=== PATIENT | female | born 1985 ===

== ENCOUNTER 2021-12-01 16:56 | Emergency (ER) | payer SELFPAY ==
[2021-12-01] MEDS ORDERED: Sodium Chloride 0.9% 1,000 ML IV ONE (17:03)
[2021-12-01] MEDS ORDERED: Sodium Chloride 0.9% 2.5 ML Syringe FLUSH PRN (17:03)
[2021-12-01] MEDS ORDERED: Sodium Chloride 0.9% 10 ML Syringe FLUSH PRN (17:03)
[2021-12-01 17:51] LABS: BLOOD UREA NITROGEN,BUN 13 mg/dL (7.0-18.0); CARBON DIOXIDE,CO2 18.5 mmol/L (21.0-32.0); CHLORIDE,CL 103 mmol/L (98-107); GLUCOSE RANDOM 102 mg/dL (74-106); POTASSIUM,K 3.4 mmol/L (3.5-5.1); SODIUM,NA 138 mmol/L (136-145)
[2021-12-01] MEDS ORDERED: Amoxicillin/Clavulanate K 875-125 MG Tab PO ONE (17:58)
[2021-12-01] MEDS ORDERED: Diphtheria,Pertussis(Acell),Tetanus Vaccine 0.5 ML Syringe IM ONE (17:58)
== END 2021-12-01 19:46 ==
LOC: MW.ED 16:56
DX: F10.129 Alcohol abuse with intoxication, unspecified (principal); Z23 Encounter for immunization; Y90.6 Blood alcohol level of 120-199 mg/100 ml
CPT/HCPCS: 36415; 70450; 80053; 80307; 82375; 83735; 84703; 85025; 90471; 90715; 99285; A9270; J3490; J7030; 99283